=== PATIENT | female | born 1995 ===

== ENCOUNTER 2019-04-19 23:30 | Outpatient (CLI) | payer MEDICAID ==
[2019-04-19 23:48] VITALS: BP 100/59
[2019-04-20] MEDS ORDERED: LACTATED RINGERS 1,000 ML IV ONE (00:12)
[2019-04-20 01:11] LABS: Bacteria,Urine 1+ /HPF (Negative); Bilirubin,Urine NEG (Negative); Blood,Urine SM (Negative); Color,Urine Straw (Yellow); Mucus,Urine FEW /HPF; Protein,Urine <15 mg/dL mg/dL (Negative); Urobilinogen,Urine < 2.0 mg/dL (<2.0); WBC,Urine < 1.0 /HPF (0.0-6.0)
--- NOTE | 2019-04-20 04:01 | Ultrasound Report ---
LIMITED OBSTETRIC ULTRASOUND WITH BIOPHYSICAL PROFILE HISTORY: Possibly leaking fluid. Clinical gestational age 34 weeks 5 days COMPARISON: None. TECHNIQUE: Limited OB ultrasound performed with biophysical profile. FINDINGS: Limited obstetrical ultrasound was performed to assess amniotic fluid index and biophysical profile. Presentation: Cephalic Amniotic Fluid Index: 18.4 cm Cardiac activity is regular rate at145 beats per minute. BIOPHYSICAL PROFILE: Movement: 2 Tone: 2 Breathin Amniotic Fluid: 2 Total: 8 out of 8 IMPRESSION 1. Single living intrauterine . Amniotic fluid index of 18.4 cm. 2. Biophysical Profile 8 out of 8. Signer Name: Dara Holguin MD Signed: 04/20/2019 3:56 AM Workstation Name: [id number]
== END 2019-04-20 03:55 | disposition home or self-care (01) ==
LOC: TRG 23:30
PROVIDERS: ATTEND Obstetrics & Gynecology
DX: O42.913 Preterm premature rupture of membranes, unspecified as to length of time between rupture and onset of labor, third trimester (principal); O99.513 Diseases of the respiratory system complicating pregnancy, third trimester; J45.909 Unspecified asthma, uncomplicated; Z3A.34 34 weeks gestation of pregnancy
CPT/HCPCS: 59025; 76815; 76819; 81001; 96360; J7120

== ENCOUNTER 2019-05-04 21:06 | Outpatient (CLI) | payer MEDICAID ==
[2019-05-04 21:37] VITALS: BP 115/58
[2019-05-04] MEDS ORDERED: LACTATED RINGERS 1,000 ML ONE (23:02)
[2019-05-04] MEDS ORDERED: LACTATED RINGERS 1,000 ML IV ONE (23:25)
== END 2019-05-05 00:30 | disposition home or self-care (01) ==
LOC: TRG 21:06
PROVIDERS: ATTEND Obstetrics & Gynecology
DX: O62.9 Abnormality of forces of labor, unspecified (principal); O99.513 Diseases of the respiratory system complicating pregnancy, third trimester; J45.909 Unspecified asthma, uncomplicated; Z3A.36 36 weeks gestation of pregnancy
CPT/HCPCS: 59025; J7120; 96360

== ENCOUNTER 2019-05-16 20:57 | Outpatient (CLI) | payer MEDICAID ==
[2019-05-16 22:42] VITALS: BP 105/62
== END 2019-05-16 22:17 | disposition home or self-care (01) ==
LOC: TRG 20:57
PROVIDERS: ATTEND Obstetrics & Gynecology
DX: O26.853 Spotting complicating pregnancy, third trimester (principal); O62.9 Abnormality of forces of labor, unspecified; Z3A.38 38 weeks gestation of pregnancy
CPT/HCPCS: 59025

== ENCOUNTER 2019-05-23 05:45 | Inpatient (IN) | payer MEDICAID ==
[2019-05-23] MEDS ORDERED: LACTATED RINGERS 1,000 ML ONE (06:16)
[2019-05-23] MEDS ORDERED: TERBUTALINE 1 MG/1 ML INJ IVP PRN (06:46)
[2019-05-23] MEDS ORDERED: TERBUTALINE 1 MG/1 ML INJ SUB-Q PRN (06:46)
[2019-05-23] MEDS ORDERED: LIDOCAINE (2%) 20 MG/1 ML VIAL 20 ML MDV INFILTRATI ONE (06:46)
[2019-05-23] MEDS ORDERED: miSOPROStol 25 MCG TAB VG ONE (06:46)
[2019-05-23] MEDS ORDERED: fentaNYL 100 MCG/2 ML INJ IV PRN (06:46)
[2019-05-23] MEDS ORDERED: MINERAL OIL 30 ML ORAL LIQD PO PRN (06:46)
[2019-05-23] MEDS ORDERED: ePHEDrine SULFATE 50 MG/1 ML INJ IV PRN ×2 (06:46→13:55)
[2019-05-23] MEDS ORDERED: BUTORPHANOL 2 MG/1 ML INJ IV PRN (06:46)
[2019-05-23] MEDS ORDERED: LACTATED RINGERS 1,000 ML IV SCH (07:00)
[2019-05-23] MEDS ORDERED: OXYTOCIN 20 UNIT/1000ML DRIP 20 UNITS/1,000 ML BAG IV SCH (07:00)
[2019-05-23 07:28] LABS: Hematocrit 31.6 % (30.3-42.9); Hemoglobin 10.5 gm/dl (10.1-14.3); Mean Corpuscular HGB Conc 33 % (30-34); Mean Corpuscular Volume 84 fl (79-97); Platelet Count 201 K/mm3 (140-440); Red Blood Count 3.77 M/mm3 (3.65-5.03); Red Cell Distribution Width 15.5 % (13.2-15.2)
[2019-05-23] MEDS: OXYTOCIN DRIP 30 UNITS/500 ML BAG IV SCH ×2 (09:30→14:05)
--- NOTE | 2019-05-23 12:26 | History and Physical Report ---
History of Present Illness Date of examination: 05/23/19 (1000) Date of admission: 05/23/19 05:46 Chief complaint: 39 wk History of present illness: 23 yo, @ 39.3 wks gestation, initiated care with [facility] [employer] at 13.6 wks. Her has been complicated by anemia. She presents to [facility] for reports of painful ctxs x 2-3 hrs. She reports positive FM. Denies any VB or LOF. Labs: O+, antibody negative; Hgb/Hct- 12.3/34.6; RPR non-reactive; HIV non-reactive; VDRL non-reactive; 1 hr Gtt- 130; sickle cell negative; HBsAg negative; Gonorrhe a/Chlamydia/Trich negative; GBS negative Past History Past Medical History: no pertinent history Past Surgical History: no surgical history Family/Genetic History: diabetes (PGM), hypertension, cancer (MGM- breast) Social history: single, lives with family, full code - Obstetrical History Expected Date of Delivery: 05/27/19 Actual Gestation: 39 Week(s) 3 Day(s) : 3 Para: 2 Hx # Term Pregnancies: 2 Number of Pregnancies: 0 Spontaneous Abortions: 0 Induced : 0 Number of Living Children: 2 #1 year: 2,009 Method of Delivery: Vaginal #2 year: 2,016 Method of Delivery: Vaginal Medications and Allergies Allergies Allergy/AdvReac Type Severity Reaction Status Date / Time No Known Allergies Allergy Verified 05/04/19 23:09 Home Medications Medication Instructions Recorded Confirmed Last Taken Type Ferrous Sulfate [Iron 325 MG] 1 tab PO QID 05/04/19 05/23/19 05/22/19 08:00 History 1 tab Vit-Fe Fumar-FA [ 1 tab PO DAILY 05/04/19 05/23/19 05/22/19 08:00 History Vitamin] 1 tab Active Meds: Active Medications Butorphanol Tartrate (Stadol) 2 mg IV Q2H PRN PRN Reason: Pain , Severe (7-10) Ephedrine Sulfate (Ephedrine Sulfate) 10 mg IV Q2M PRN PRN Reason: Hypotension Fentanyl (Sublimaze) 100 mcg IV Q2H PRN PRN Reason: Labor Pain Oxytocin/Sodium Chloride (Pitocin/Ns 20 Unit/1000ml Drip) 20 units in 1,000 mls @ 125 mls/hr IV DIRECT HODAN Oxytocin/Sodium Chloride (Pitocin/Ns 30 Unit/500ml) 30 units in 500 mls @ 2 mls/hr IV TITR HODAN; Protocol Last Admin: 05/23/19 09:30 Dose: 2 milliunits/min, 2 mls/hr Documented by: Lactated Ringer's (Lactated Ringers) 1,000 mls @ 125 mls/hr IV DIRECT HODAN Mineral Oil (Mineral Oil) 30 ml PO QHS PRN PRN Reason: Constipation Terbutaline Sulfate (Brethine) 0.25 mg SUB-Q ONCE PRN PRN Reason: Hyperstimulation/Hypertonicity Terbutaline Sulfate (Brethine) 0.25 mg IVP ONCE PRN PRN Reason: Hyperstimulation/Hypertonicity Review of Systems All systems: negative Genitourinary: contractions - Vital Signs Vital signs: Vital Signs Temp Pulse Resp BP Pulse Ox 97.6 F 115 H 18 109/71 98 05/23/19 06:01 05/23/19 06:01 05/23/19 06:01 05/23/19 06:01 05/23/19 06:01 Temp Pulse Resp BP Pulse Ox 97.6 F 99 H 18 112/63 98 05/23/19 06:01 05/23/19 11:38 05/23/19 06:01 05/23/19 11:38 05/23/19 06:01 - Physical Exam Breasts: Positive: deferred Cardiovascular: Regular rate Lungs: Positive: Normal air movement Abdomen: Positive: other (gravid) Genitourinary (Female): Positive: normal external genitalia, normal perenium Vagina: Positive: normal moisture Uterus: Positive: enlarged, other (S=D) Extremities: Positive: normal Deep Tendon Reflex Grade: Normal +2 - Obstetrical FHR: category 1 Uterine Contraction Monitor Mode: External Cervical Dilatation: 4 Cervical Effacement Percentage: 60 station: -3 Uterine Contraction Pattern: Irregular Uterine Tone Measurement Phase: Resting Uterine Contraction Intensity: Mild Results Result Diagrams: 05/23/19 06:30 Abnormal lab results 05/23/19 Range/Units 06:30 RDW 15.5 H (13.2-15.2) % All other labs normal. Assessment and Plan - Patient Problems (1) 39 weeks gestation of Current Visit: Yes Status: Acute Plan to address problem: Admit to L & D Pitocin augmentation as tolerated Pain medications as desired Anticipate (2) Anemia Current Visit: Yes Status: Acute Qualifiers: Anemia type: iron deficiency
[2019-05-23] MEDS ORDERED: BUPIVACAINE/PF (0.25%) 2.5 MG/ML 10 ML VIAL INFILTRATI ONE (12:58)
[2019-05-23] MEDS ORDERED: fentaNYL-BUPIV 2 MCG/ML-0.125% 200 MCG/100 ML BAG EPIDURAL ONE (13:54)
--- NOTE | 2019-05-23 13:54 | Anesthesia Consultation ---
Anesthesia Consult and Med Hx Date of service: 05/23/19 - Airway Anesthetic Teeth Evaluation: Good ROM Head & Neck: Adequate Mental/Hyoid Distance: Adequate Mallampati Class: Class I Intubation Access Assessment: Probably Good - Pre-Operative Health Status ASA Pre-Surgery Classification: ASA2, Emergency Proposed Anesthetic Plan: Epidural - Pulmonary Hx Asthma: Yes (current, albuterol inhaler prn) - Cardiovascular System Hx Hypertension: No - Central Nervous System Hx Seizures: No Hx Psychiatric Problems: No - Endocrine Hx Renal Disease: No Hx Hypothyroidism: No Hx Hyperthyroidism: No - Hematic Hx Anemia: Yes Hx Sickle Cell Disease: No - Other Systems Hx Alcohol Use: Yes
[2019-05-23] MEDS ORDERED: NALOXONE 2 MG/2 ML INJ IV PRN (13:55)
[2019-05-23] MEDS ORDERED: fentaNYL-BUPIV 2 MCG/ML-0.125% 200 MCG/100 ML BAG EPIDURAL SCH (14:00)
--- NOTE | 2019-05-23 14:36 | Progress Note ---
Assessment and Plan - Patient Problems (1) 39 weeks gestation of Current Visit: Yes Status: Acute Plan to address problem: Continue Pitocin augmentation as tolerated AROM at 1430, clear fluids, tolerated well Anticipate (2) Anemia Current Visit: Yes Status: Acute Qualifiers: Anemia type: iron deficiency Subjective - Subjective Date of service: 05/23/19 (1430) Principal diagnosis: 39 wk gestation; Active labor Interval history: 23 yo, @ 39.3 wks gestation, initiated care with [place] [facility] at 13.6 wks. Her has been complicated by anemia. She presents to [facility] for reports of painful ctxs x 2-3 hrs. She reports positive FM. Denies any VB or LOF. Labs: O+, antibody negative; Hgb/Hct- 12.3/34.6; RPR non-reactive; HIV non-reactive; VDRL non-reactive; 1 hr Gtt- 130; sickle cell negative; HBsAg negative; Gonorrhea/Chlamydia/Trich negative; GBS negative Patient reports: movement normal, other (Comfortable with epidural), no vaginal bleeding Objective - Vital Signs Vital Signs: Vital Signs - 12hr 05/23/19 05/23/19 05/23/19 06:01 06:23 07:16 Temperature 97.6 F Pulse Rate 115 H 82 86 Respiratory 18 Rate Blood Pressure 108/59 118/59 Blood Pressure 109/71 [Right] O2 Sat by Pulse 98 Oximetry 05/23/19 05/23/19 05/23/19 11:38 12:59 13:01 Temperature Pulse Rate 99 H 95 H 105 H Respiratory Rate Blood Pressure 112/63 116/84 118/63 Blood Pressure [Right] O2 Sat by Pulse 97 Oximetry 05/23/19 05/23/19 05/23/19 13:03 13:05 13:06 Temperature Pulse Rate 89 92 H 96 H Respiratory Rate Blood Pressure 116/67 110/68 Blood Pressure [Right] O2 Sat by Pulse 98 Oximetry 05/23/19 05/23/19 05/23/19 13:07 13:09 13:11 Temperature Pulse Rate 96 H 93 H 107 H Respiratory Rate Blood Pressure 111/61 114/67 111/66 Blood Pressure [Right] O2 Sat by Pulse 96 Oximetry 05/23/19 05/23/19 05/23/19 13:13 13:14 13:15 Temperature Pulse Rate 102 H 81 85 Respiratory Rate Blood Pressure 109/63 105/69 Blood Pressure [Right] O2 Sat by Pulse 92 Oximetry 05/23/19 05/23/19 05/23/19 13:16 13:17 13:19 Temperature Pulse Rate 80 83 82 Respiratory Rate Blood Pressure 110/71 109/70 Blood Pressure [Right] O2 Sat by Pulse 99 Oximetry 05/23/19 05/23/19 05/23/19 13:21 13:23 13:28 Temperature Pulse Rate 90 92 H 119 H Respiratory Rate Blood Pressure 104/55 109/56 Blood Pressure [Right] O2 Sat by Pulse 97 98 Oximetry 05/23/19 05/23/19 05/23/19 13:34 13:35 13:39 Temperature Pulse Rate 106 H 85 90 Respiratory Rate Blood Pressure 88/47 75/41 Blood Pressure [Right] O2 Sat by Pulse 97 99 Oximetry 05/23/19 05/23/19 05/23/19 13:43 13:44 13:48 Temperature Pulse Rate 80 88 96 H Respiratory Rate Blood Pressure 84/49 82/43 Blood Pressure [Right] O2 Sat by Pulse 99 Oximetry 05/23/19 05/23/19 05/23/19 13:49 13:53 13:54 Temperature Pulse Rate 77 83 92 H Respiratory Rate Blood Pressure 99/58 Blood Pressure [Right] O2 Sat by Pulse 100 99 Oximetry 05/23/19 05/23/19 05/23/19 13:55 13:57 13:59 Temperature Pulse Rate 92 H 89 Respiratory 18 Rate Blood Pressure 101/55 101/55 Blood Pressure [Right] O2 Sat by Pulse 100 Oximetry 05/23/19 05/23/19 05/23/19 14:02 14:04 14:09 Temperature Pulse Rate 91 H 94 H 103 H Respiratory Rate Blood Pressure 98/54 100/52 Blood Pressure [Right] O2 Sat by Pulse 100 98 Oximetry 05/23/19 05/23/19 05/23/19 14:14 14:18 14:19 Temperature Pulse Rate 87 87 99 H Respiratory Rate Blood Pressure 99/55 98/57 Blood Pressure [Right] O2 Sat by Pulse 98 99 Oximetry 05/23/19 05/23/19 05/23/19 14:23 14:24 14:29 Temperature Pulse Rate 95 H 97 H 113 H Respiratory Rate Blood Pressure 156/54 Blood Pressure [Right] O2 Sat by Pulse 85 99 99 Oximetry - Exam Breasts: deferred Cardiovascular: Regular rate Lungs: Normal air movement FHR: category 1 Uterine Contraction Monitor Mode: External Cervical Dilatation: 9 (Pitocin @ 2 mu/min) Cervical Effacement Percentage: 90 station: 0 Uterine Contraction Frequency (min): 3-4 Uterine Contraction Pattern: Irregular Uterine Tone Measurement Phase: Resting Uterine Contraction Intensity: Strong/Firm Extremities: normal Deep Tendon Reflex Grade: Normal +2 - Labs Labs: Abnormal Labs 05/23/19 06:30 RDW 15.5 H Laboratory Results - last 24 hr 05/23/19 05/23/19 06:30 06:30 WBC 7.0 RBC 3.77 Hgb 10.5 Hct 31.6 MCV 84 MCH 28 MCHC 33 RDW 15.5 H Plt Count 201 Blood Type O POSITIVE Antibody Screen Negative
[2019-05-23] MEDS ORDERED: diphenhydrAMINE 25 MG CAP PO PRN (19:26)
[2019-05-23] MEDS ORDERED: MAGNESIUM HYDROXIDE (MOM) ORAL LIQD UDC PO PRN (19:26)
[2019-05-23] MEDS ORDERED: ONDANSETRON 4 MG/2 ML INJ IV PRN (19:26)
[2019-05-23] MEDS ORDERED: LANOLIN/ZINC/DIMETHICONE (LANSINOH) 7 GM TP PRN (19:26)
[2019-05-23] MEDS ORDERED: PROMETHAZINE 25 MG TAB PO PRN (19:26)
[2019-05-23] MEDS ORDERED: WITCH HAZEL/ GLYCERIN PAD TP PRN (19:26)
[2019-05-23] MEDS ORDERED: oxyCODONE /ACETAMINOPHEN 5-325MG TAB PO PRN (19:26)
--- NOTE | 2019-05-23 19:35 | Procedure Note ---
OB Delivery Note - Delivery Date of Delivery: 05/23/19 (1908) Surgeon: MILLER YATES (CNM) Estimated blood loss: 200cc - Vaginal Delivery presentation: vertex Delivery position: OA ([place]) Delivery induction: none Delivery augmentation: rupture of membranes, pitocin Delivery monitor: external FHT, external uterine Route of delivery: Delivery placenta: spontaneous (1917) Delivery cord: 3 umbilical vessels Delivery laceration: none Anesthesia: epidural Delivery comments: of viable, crying, female infant placed directly to maternal abdomen. Cord double clamped and cut by FOB after cessation of pulsation. Placenta spontaneously delivered, vin, disposed per hospital policy. Uterus firm @ U, hemostasis maintained. Perineum intact. Mother and baby safe, stable and bonding well. - Infant A at 1 minute: 8 at 5 minutes: 9 Infant Gender: Female (Weight: 3843 gms (8lbs 8ozs) 20 inches)
[2019-05-23] MEDS: IBUPROFEN 600 MG TAB PO SCH (19:42)
[2019-05-24] MEDS: IBUPROFEN 600 MG TAB PO SCH ×4 (04:32→21:37)
--- NOTE | 2019-05-24 04:59 | Post Anesthesia Evaluation ---
- Post Anesthesia Evaluation Patient Participated: Yes Airway Patent: Yes Stable Respiratory Function: Yes Nausea/Vomiting: No Temp > 96.8F: Yes Pain Manageable: Yes Adequeate Hydration: Yes Anesthesia Complications: No Block Receding Appropriately: Yes Patient on Ventilator: No
[2019-05-24 07:50] LABS: Hematocrit 28.7 % (30.3-42.9); Hemoglobin 9.5 gm/dl (10.1-14.3)
[2019-05-24] MEDS: PRENATAL VIT27-FE FUMARATE-FOLIC ACID VIT TAB PO SCH (09:29)
[2019-05-24] MEDS: FERROUS SULFATE 325 MG TAB PO SCH (09:29)
--- NOTE | 2019-05-24 09:54 | Progress Note ---
Assessment and Plan A: PP Day #1 Asymptomatic Anemia P: Follow routine orders Continue FeSO4 as ordered D/C home in the AM RTO in 6 Weeks Subjective - Subjective Date of service: 05/24/19 Principal diagnosis: 39 wk gestation; Active labor Patient reports: appetite normal, voiding normally, pain well controlled, flatus, ambulating normally : doing well, bottle feeding (and ) Objective - Vital Signs Latest vital signs: Vital Signs Temp Pulse Resp BP BP Pulse Ox 05/24/19 08:20 98.1 F 75 20 96/60 05/24/19 05:32 18 05/24/19 04:53 97.9 F 89 20 92/50 97 05/24/19 04:32 18 05/23/19 23:51 18 05/23/19 22:51 18 05/23/19 22:26 98.8 F 100 H 18 103/58 95 05/23/19 21:33 115 H 104/59 05/23/19 21:18 107 H 101/59 05/23/19 21:03 95 H 105/57 05/23/19 20:48 92 H 118/61 05/23/19 20:33 100 H 114/61 05/23/19 20:18 94 H 113/63 05/23/19 20:03 93 H 114/63 05/23/19 19:59 93 H 99 05/23/19 19:54 98 H 99 05/23/19 19:49 95 H 99 05/23/19 19:48 99 H 118/65 05/23/19 19:46 106 H 89 05/23/19 19:44 101 H 98 05/23/19 19:42 15 05/23/19 19:39 101 H 98 05/23/19 19:34 106 H 99 05/23/19 19:33 96 H 114/66 05/23/19 19:30 98.1 F 05/23/19 19:29 101 H 97 05/23/19 19:24 111 H 99 05/23/19 19:19 101 H 98 05/23/19 19:16 99 H 113/61 91 05/23/19 19:14 97 H 100 05/23/19 19:09 123 H 98 05/23/19 19:04 95 H 97 05/23/19 18:59 105 H 98 05/23/19 18:57 119 H 93 05/23/19 18:54 107 H 97 05/23/19 18:50 103 H 119/65 05/23/19 18:49 105 H 98 05/23/19 18:44 120 H 97 05/23/19 18:39 113 H 96 05/23/19 18:35 123 H 111/52 05/23/19 18:34 100 H 135/105 96 05/23/19 18:29 114 H 99 05/23/19 18:24 121 H 98 05/23/19 18:20 109 H 114/68 05/23/19 18:19 138 H 97 05/23/19 18:14 92 H 99 05/23/19 18:09 91 H 97 05/23/19 18:04 90 99 05/23/19 18:03 91 H 98/58 05/23/19 17:59 94 H 98 05/23/19 17:54 95 H 98 05/23/19 17:49 53 L 88 05/23/19 17:44 81 100 05/23/19 17:39 111 H 98 05/23/19 17:35 73 89 05/23/19 17:34 114 H 99 05/23/19 17:29 98 H 97 05/23/19 17:24 97 H 98 05/23/19 17:19 89 110/66 99 05/23/19 17:14 89 99 05/23/19 17:09 102 H 99 05/23/19 17:04 111 H 99/58 97 05/23/19 16:59 107 H 98 05/23/19 16:54 98 H 99 05/23/19 16:49 116 H 98 05/23/19 16:48 108 H 108/66 05/23/19 16:44 91 H 98 05/23/19 16:39 111 H 97 05/23/19 16:34 104 H 98 05/23/19 16:33 102 H 106/58 05/23/19 16:29 103 H 98 05/23/19 16:24 96 H 98 05/23/19 16:19 116 H 117/62 100 05/23/19 16:14 90 98 05/23/19 16:09 92 H 99 05/23/19 16:04 44 L 0 L 05/23/19 15:59 95 H 98 05/23/19 15:54 86 99 05/23/19 15:49 81 91/52 98 05/23/19 15:44 89 98 05/23/19 15:39 92 H 97 05/23/19 15:34 82 94/51 98 05/23/19 15:29 95 H 98 05/23/19 15:24 94 H 98 05/23/19 15:19 83 90 05/23/19 15:14 116 H 99 05/23/19 15:09 101 H 97 05/23/19 15:05 106 H 108/66 05/23/19 15:04 99 H 98 05/23/19 14:59 115 H 100 05/23/19 14:54 112 H 98 05/23/19 14:49 119 H 99 05/23/19 14:48 101 H 104/57 05/23/19 14:44 82 99 05/23/19 14:39 84 100 05/23/19 14:34 89 99 05/23/19 14:29 113 H 99 05/23/19 14:24 97 H 99 05/23/19 14:23 95 H 156/54 85 05/23/19 14:19 99 H 99 05/23/19 14:18 87 98/57 05/23/19 14:14 87 99/55 98 05/23/19 14:09 103 H 100/52 98 05/23/19 14:04 94 H 100 05/23/19 14:02 91 H 98/54 05/23/19 13:59 89 100 05/23/19 13:57 92 H 101/55 05/23/19 13:55 18 101/55 05/23/19 13:54 92 H 99 05/23/19 13:53 83 99/58 05/23/19 13:49 77 100 05/23/19 13:48 96 H 82/43 05/23/19 13:44 88 99 05/23/19 13:43 80 84/49 05/23/19 13:39 90 99 05/23/19 13:35 85 75/41 05/23/19 13:34 106 H 88/47 97 05/23/19 13:28 119 H 98 05/23/19 13:23 92 H 109/56 05/23/19 13:21 90 104/55 97 05/23/19 13:19 82 109/70 05/23/19 13:17 83 110/71 05/23/19 13:16 80 99 05/23/19 13:15 85 105/69 05/23/19 13:14 81 92 05/23/19 13:13 102 H 109/63 05/23/19 13:11 107 H 111/66 96 05/23/19 13:09 93 H 114/67 05/23/19 13:07 96 H 111/61 05/23/19 13:06 96 H 98 05/23/19 13:05 92 H 110/68 05/23/19 13:03 89 116/67 05/23/19 13:01 105 H 118/63 97 05/23/19 12:59 95 H 116/84 05/23/19 11:38 99 H 112/63 Intake and Output 05/23/19 05/24/19 05/24/19 22:59 06:59 14:59 Intake Total 1500 720 240 Output Total 300 Balance 1500 420 240 Intake: IV 1500 Lactated Ringers 1,000 ml 1000 @ 125 mls/hr IV DIRECT HODAN Rx#:[id number] PITOCin/NS 30 UNIT/500ML 500 30 units In 500 ml @ 2 MILLIUNITS/MIN 2 mls/hr IV TITR HODAN Rx#:[id number] Oral 240 240 Intake, Free Water 480 Output: Urine 300 Void 300 Other: Total, Intake Amount 240 240 Total, Output Amount 300 # Voids Void 2 2 Estimated Blood Loss 200 - Exam Breasts: Present: normal Cardiovascular: Present: Regular rate Lungs: Present: Clear to auscultation, Normal air movement Abdomen: Present: normal appearance, soft, normal bowel sounds Uterus: Present: normal, firm, fundal height below umbilicus Extremities: Present: normal - Labs Labs: Abnormal lab results 05/24/19 Range/Units 07:28 Hgb 9.5 L (10.1-14.3) gm/dl Hct 28.7 L (30.3-42.9) %
--- NOTE | 2019-05-24 09:56 | Discharge Summary ---
Providers - Providers Date of Admission: 05/23/19 05:46 Date of discharge: 05/25/19 Attending physician: OSCAR DALY Primary care physician: OSCAR DALY Hospitalization Reason for admission: active labor Delivery: Episiotomy: none Laceration: none Other procedures: none Discharge diagnosis: IUP at term delivered [place] baby: female Condition at discharge: Good Disposition: DC-01 TO HOME OR SELFCARE Plan - Provider Discharge Summary Activity: routine, no sex for 6 weeks, no heavy lifting 4 weeks, no strenuous exercise Diet: routine Instructions: routine Additional instructions: [] Smoking cessation referral if applicable(refer to patient education folder for contact #) [] Refer to [facility]'s [facility] Booklet Call your doctor immediately for: * Fever > 100.5 * Heavy vaginal bleeding ( >1 pad per hour) * Severe persistent headache * Shortness of breath * Reddened, hot, painful area to leg or breast * Drainage or odor from incision. * Keep incision clean and dry at all times and follow doctor's instructions regarding bathing/showering - Follow up plan Follow up: OSCAR DALY MD [Primary Care Provider] - 7 Days
[2019-05-25] MEDS: IBUPROFEN 600 MG TAB PO SCH ×2 (05:10→10:00)
[2019-05-25] MEDS: FERROUS SULFATE 325 MG TAB PO SCH (10:00)
[2019-05-25] MEDS: PRENATAL VIT27-FE FUMARATE-FOLIC ACID VIT TAB PO SCH (10:00)
[2019-05-25 13:19] VITALS: BP 110/67
== END 2019-05-25 11:42 | disposition home or self-care (01) | DRG 775 ==
LOC: TRG 05:45 → LD 05:46 → TRG 05:50 → LD 06:41 → OB 21:59
PROVIDERS: ADMIT Obstetrics & Gynecology; ATTEND Obstetrics & Gynecology
PROC: 10E0XZZ Delivery of Products of Conception, External Approach (ICD-10-PCS; principal; 2019-05-23)
PROC: 3E0R3BZ Introduction of Anesthetic Agent into Spinal Canal, Percutaneous Approach (ICD-10-PCS; 2019-05-23)
PROC: 00HU33Z Insertion of Infusion Device into Spinal Canal, Percutaneous Approach (ICD-10-PCS; 2019-05-23)
PROC: 10907ZC Drainage of Amniotic Fluid, Therapeutic from Products of Conception, Via Natural or Artificial Opening (ICD-10-PCS; 2019-05-23)
DX: O99.02 Anemia complicating childbirth (principal); D50.9 Iron deficiency anemia, unspecified; O99.52 Diseases of the respiratory system complicating childbirth; J45.909 Unspecified asthma, uncomplicated; O99.314 Alcohol use complicating childbirth; Z3A.39 39 weeks gestation of pregnancy; Z37.0 Single live birth; Z83.3 Family history of diabetes mellitus; Z80.3 Family history of malignant neoplasm of breast; Z82.49 Family history of ischemic heart disease and other diseases of the circulatory system; Z79.899 Other long term (current) drug therapy
CPT/HCPCS: 36415; 85014; 85018; 85027; 86592; 86762; 86850; 86900; 86901; G0378; A6250; J2590; J3010; J7120